=== PATIENT | female | born 1990 | race Caucasian/White ===

== ENCOUNTER 2017-11-04 00:16 | Outpatient (CLI) | payer MEDICAID | END 2017-11-04 00:40 | disposition other institution (70) | LOC: D.LDO 00:16 | DX: O26.893 Other specified pregnancy related conditions, third trimester (principal); Z3A.33 33 weeks gestation of pregnancy; O30.003 Twin pregnancy, unspecified number of placenta and unspecified number of amniotic sacs, third trimester ==